=== PATIENT | female | born 1985 | race Asian ===

== ENCOUNTER → 2017-01-28 | Outpatient (CLI) | payer OTHER ==
[~2017-01-28] MED LIST: ALBU17IN INH; FERR325T3 PO; ISOVUE-370 76% 100ML VIAL (Q9967) As Ordered ONE; PANT20TA PO
--- NOTE | 2017-01-28 13:13 | REP ---
Hysterosalpingography: History: Dr. Lara informed me that the patient is status post hysteroscopic myomectomy. Infertility. No comparison imaging. Technique: Endometrial cannulation and contrast injection was performed by Dr. Lara. Sequential fluoroscopic spot radiographs are acquired during the contrast injection. The fluoroscopy time is 1 minute 4 seconds. A total of eight spot radiographs are acquired. Findings: Uterus is tipped somewhat to the right. Endometrial contour is quite deformed by submucosal or myometrial masses in the uterus along the right lateral and uterine fundal margins of the endometrium. Multiple fibroids are suspected possibly up to five producing mass effect on the endometrium. There was sluggish filling of the isthmic and ampullary segments of the fallopian tubes, however, bilateral tubal patency was ultimately documented. A filling defect persists in the lower uterine segment endometrium which could conceivably be a synechia. Impression: Multiple submucosal/myometrial masses deforming the endometrial cavity particularly along the right lateral and fundal aspect. Question synechia. Bilateral tubal patency is documented. Signed by Pradip Arevalo MD 01/28/2017 02:16 P
== END ==
LOC: M RADPRO 11:08
PROVIDERS: ATTEND Obstetrics & Gynecology
DX: N97.9 Female infertility, unspecified (principal)
CPT/HCPCS: 58340; 74740; Q9967